=== PATIENT | female | born 1965 | race Caucasian/White ===

== ENCOUNTER 2021-04-06 20:52 | Emergency (ER) | payer MEDICAID ==
[~2021-04-06] VITALS: Ht 152.4 cm; Wt 61.4 kg
[~2021-04-06 20:52] MED LIST: ATOR20TA86 PO; METF-960 PO
[2021-04-06] MEDS ORDERED: GLIP5 PO (21:03)
[2021-04-06] MEDS ORDERED: KETOROLAC TROMETHAMINE 30 MG/ML VIAL IM ONE (22:15)
[2021-04-07 00:30] VITALS: BP 135/71
== END 2021-04-07 00:45 | disposition home or self-care (01) ==
LOC: EMS 20:52
DX: S63.502A Unspecified sprain of left wrist, initial encounter (principal); E11.9 Type 2 diabetes mellitus without complications; E78.00 Pure hypercholesterolemia, unspecified; W01.0XXA Fall on same level from slipping, tripping and stumbling without subsequent striking against object, initial encounter; Y93.89 Activity, other specified; Y92.89 Other specified places as the place of occurrence of the external cause; Y99.8 Other external cause status
CPT/HCPCS: 29125; 73080; 73090; 73110; 82962; 96372; 99284; J1885

== ENCOUNTER 2021-04-18 13:57 | Emergency (ER) | payer MEDICAID ==
[~2021-04-18] VITALS: Ht 160 cm; Wt 59.1 kg
[~2021-04-18 13:57] MED LIST changes: +GLIP5 PO
[2021-04-18] MEDS ORDERED: GLYB2.5T6 PO (16:19)
[2021-04-18] MEDS ORDERED: IBUPROFEN 800 MG TABLET PO ONE (16:30)
[2021-04-18 17:14] VITALS: BP 120/72
== END 2021-04-18 17:58 | disposition home or self-care (01) ==
LOC: EMS 14:04
DX: S63.502A Unspecified sprain of left wrist, initial encounter (principal); E11.9 Type 2 diabetes mellitus without complications; E78.00 Pure hypercholesterolemia, unspecified; Z79.84 Long term (current) use of oral hypoglycemic drugs; W19.XXXA Unspecified fall, initial encounter; Y93.89 Activity, other specified; Y92.89 Other specified places as the place of occurrence of the external cause; Y99.8 Other external cause status
CPT/HCPCS: 29105; 99283